=== PATIENT | female | born 1945 | race Caucasian/White ===

== ENCOUNTER 2017-04-21 19:39 | Inpatient (IN) ==
[2017-04-21] MEDS ORDERED: ASPIRIN PO STA (19:44)
[2017-04-21 20:15] LABS: MANUAL DIFF NEEDED? NO
[2017-04-21 20:25] LABS: BASO% 0.3 % (0.0-0.8); EOS# 0.43 X1000 (0.0-0.7); EOS% 3.6 % (0.0-10.0); HEMATOCRIT 39.8 % (37.0-47.0); HEMOGLOBIN 13.2 g/dL (12.0-16.0); IMM GRAN# 0.03 X1000 (0.0-0.04); IMM GRAN% 0.3 % (0.0-0.5); LYMPH# 1.93 X1000 (1.2-3.4); LYMPH% 16.2 % (20.5-51.1); MCHC 33.2 g/dL (33-37); MCV 96.6 FL (81-99); MONO# 1.19 X1000 (0.11-0.59); MPV 10.7 FL (7.4-10.4); NEUT% 69.6 % (42.2-75.2); PLT 205 X1000 (130-400); RBC 4.12 XMIL (4.2-5.4)
[2017-04-21 20:32] LABS: INR 0.94; PROTIME 9.8 Seconds (9.2-11.7); PTT 25.9 Seconds (22.0-36.0)
[2017-04-21 20:46] LABS: AGAP 13; ALBUMIN 4.3 g/dL (3.5-5.0); ALKALINE PHOSPHATASE 104 U/L (32-104); BUN 17 mg/dL (8-22); CALCIUM 9.2 mg/dL (8.8-10.2); CHLORIDE 99 mmol/L (98-107); CK PROFILE 38 U/L (24-173); COSMO 283; GOT 35 U/L (10-30); GPT 46 U/L (10-36); MAGNESIUM 2.1 mg/dL (1.5-2.7); POTASSIUM 4.3 mmol/L (3.5-5.1); SODIUM 140 mmol/L (136-145); TCO2 28 mmol/L (25-35); TOTAL BILIRUBIN 0.54 mg/dL (0.20-1.00); TOTAL PROTEIN 7.1 g/dL (6.3-8.3)
--- NOTE | 2017-04-21 21:01 | PROVIDER DOCUMENTATION ---
HPI-General Adult - General Chief Complaint: Chest Pain Stated Complaint: CHEST PAIN/LT ARM PAIN Time Seen by Provider: 04/21/17 20:24 Source: patient, family Allergies/Adverse Reactions: Patient Allergies Allergy/AdvReac Type Severity Reaction Status Date / Time meperidine HCl * Allergy Severe ANAPHYLAXIS Verified 04/21/17 21:46 [From Demerol] Home Medications: Home Medication List Medication Instructions Recorded Confirmed Last Taken Type Fluoxetine [Prozac] 40 mg PO DAILY 08/29/12 04/21/17 04/20/17 History Furosemide [Lasix] 40 mg PO QAM 08/29/12 04/21/17 04/20/17 History LISINOpril [Prinivil] 20 mg PO BID 08/29/12 04/21/17 04/21/17 08:00 History Levothyroxine [Synthroid] 75 microgm PO DAILY 08/29/12 04/21/17 04/21/17 History Amlodipine Besylate [Norvasc] 5 mg PO DAILY 09/29/16 04/21/17 04/21/17 History Clonidine [Catapres] 0.2 mg PO QHS 04/21/17 04/21/17 04/20/17 History Gabapentin [Neurontin] 300 mg PO QHS 04/21/17 04/21/17 04/20/17 History Hydrocodone/Acetaminophen [Phelan 1 each PO Q6HR PRN 04/21/17 04/21/17 04/21/17 20:30 History 7.5-325 Tablet] Valacyclovir HCl [Valtrex] 1,000 mg PO TID 04/21/17 04/21/17 04/21/17 History - History of Present Illness -Gen Adult Nature of Presenting Problems: 71 year old WF presents with multiple complaints. One, pt reports she was awakened this morning with left arm pain, left axilla, dull in nature, radiating to the left left neck and left chest. pt reports she took 2 Phelan this morning and that resolved all pain. pt reports she is pain free except when her LUE is palpated, then the pain can be reproduced. pt also reports intermittent swelling of her LUE. Second complaint is the development of two abscess to the left lower abdomen region. pt reports she was evaluated by her PMD for this, told it was shingles and placed on valcyclovir. Third complaint is the yeast infection under her left panus. Pt report she was also evaluated by her PMD for this and placed on micanozole. Pt reports chills for a week with subjective fever, max temp 99 at home. Additionally, pt reports she has been feeling weak, tired and fatigued. Review of Systems - Adult - REVIEW OF SYSTEMS - ADULT Constitutional: reports: no symptoms reported. denies: chills, fever, fatique Eyes: reports: no symptoms reported. denies: discharge, blurred vision, double vision Ears, Nose, Mouth & Throat: reports: no symptoms reported. denies: ear discharge, ear pain, nose pain, loose teeth, throat pain, throat swelling Cardiovascular: reports: see HPI, chest pain. denies: palpitations, syncope Respiratory: reports: no symptoms reported. denies: chronic cough, cough, shortness of breath, wheezing Gastrointestinal: reports: no symptoms reported. denies: abdominal pain, diarrhea, nausea, poor appetite, vomiting Genitourinary: reports: no symptoms reported. denies: dysuria, hematuria, urgency Musculoskeletal: reports: no symptoms reported. denies: bone pain, joint pain, joint swelling, neck pain Integumentary: reports: see HPI, itching, rash (panus), skin sores/ulcer (LLQ) Neurological: reports: no symptoms reported. denies: ataxia, dizziness/vertigo , numbness, paresthesia Psychiatric: reports: no symptoms reported Endocrine: reports: no symptoms reported Hematologic/Lymphatic: reports: no symptoms reported Allergic/Immunologic: reports: no symptoms reported All Other Systems: Reviewed and Negative Past History - Adult - PAST MEDICAL HISTORY-ADULT Review of Records: reports: Old Records Reviewed, Nursing Assessment Review, Medications Reviewed, Social history reviewed & non-contributory. Major Childhood Illnesses: reports: denies history Cardiovascular: reports: HTN, hyperlipidemia Respiratory: reports: asthma Gastrointestinal: reports: GERD Obstetrical/Gynecological: reports: denies history Genitourinary: reports: denies history Musculoskeletal: reports: denies history Neurological: reports: denies history Endocrine/Immune: reports: thyroid disorder Other Conditions: reports: denies history - PRIOR SURGERIES/PROCEDURES Surgical/Procedure History: reports: appendectomy, cholecystectomy (HEMMORHOID SURGERY), hysterectomy, other (HEMM) - IMMUNIZATION STATUS Childhood Immunizations: See Nurse Assessment Flu Vaccine: See Nurse Assessment - FAMILY HISTORY Family History: reviewed, not pertinent Physical Exam-General - PHYSICAL EXAM-ADULT Initial Vital Signs Reviewed: Yes - CONSTITUTIONAL General Appearance: appears well, alert, no apparent distress. negative: mild distress, moderate distress, severe distress - EYES Eyes: pink conjunctivae. negative: conjuctival exudate, photophobia, sclera injected, scleral icterus, subconjunctival hemorrhage - HEAD, EARS, NOSE, MOUTH & THROAT HENMT: normocephalic/atraumatic, moist mucous membranes, normal ENT inspection - NECK Neck: non-tender, full range of motion, supple, normal inspection. negative: C- spine tenderness, limited range of motion, tender lateral, tender midline - RESPIRATORY Respiratory: chest non-tender, lungs clear, normal breath sounds, no pleuratic chest pain, no respiratory distress, no accessory muscle use. negative: respiratory distress, decreased breath sounds, accessory muscle use, crackles, rales, rhonchi, stridor, wheezing - CARDIOVASCULAR Cardiovascular: normal peripheral pulses, regular rate, rhythm - GASTROINTESTINAL (ABDOMEN) Abdominal Exam: normal bowel sounds, non tender, soft - MUSCULOSKELETAL Back Exam: normal inspection, no CVA tenderness, no vertebral tenderness. negative: CVA tenderness, decreased range of motion, swelling, vertebral tenderness Extremity: normal range of motion, normal gait, normal inspection, no pedal edema, no calf tenderness, normal capillary refill, tenderness. negative: non- tender (LUE tender to palpation at the brachial region; left upper posterior arm tender without area of erythema, rash, swelling.), abnormal NV exam, calf tenderness, deformity, erythema, inflammation, pulse deficit, pedal edema, slow capillary refill, swelling Peripheral Pulses: radial (R): 3+, radial (L): 3+ - SKIN Integumentary: normal color, normal turgor, warm/dry, erythema (left lower abdomen with two abscess; 1. 2cm by 2cm abscess with surrounding erythema 2. 3cm by 3cm abscess with surrounding erythema; all region tender to palpation.), rash (panus when lifted with diffuse erthema-yeast rash, tender to palpation.), swelling, tenderness, warm - NEUROLOGIC Neurologic: grossly normal, no motor/sensory deficits. negative: focal weakness - PSYCHIATRIC Psych/Mental Status: normal mood/affect, normal thought content, normal thought process, oriented x 3 Progress - PLAN OF CARE/RESULTS Progress/Plan/Lab Results: Vital Signs - 8 hr 04/21/17 19:51 Temperature 98.5 F Pulse Rate 99 H Respiratory Rate 16 Blood Pressure 147/71 O2 Sat by Pulse Oximetry 97 Laboratory Results - last 24 hr 04/21/17 04/21/17 04/21/17 20:04 20:04 20:04 WBC 11.95 H RBC 4.12 L Hgb 13.2 Hct 39.8 MCV 96.6 MCH 32.0 H MCHC 33.2 RDW Std Deviation 11.7 Plt Count 205 MPV 10.7 H Immature Gran % (Auto) 0.3 Neut % (Auto) 69.6 Lymph % (Auto) 16.2 L Brooks % (Auto) 10.0 H Eos % (Auto) 3.6 Baso % (Auto) 0.3 Immature Gran # (Auto) 0.03 Neut # (Auto) 8.34 H Lymph # (Auto) 1.93 Brooks # (Auto) 1.19 H Eos # (Auto) 0.43 Baso # (Auto) 0.03 PT INR PTT (Actin FS) Sodium 140 Potassium 4.3 Chloride 99 Carbon Dioxide 28 Anion Gap 13 BUN 17 Creatinine 0.8 Estimated GFR/1.73 m2 > 60 BUN/Creatinine Ratio 21 Glucose 134 H Calculated Osmolality 283 Calcium 9.2 Magnesium 2.1 Total Bilirubin 0.54 AST 35 H ALT 46 H Alkaline Phosphatase 104 Creatine Kinase 38 Troponin T Ies-X-Uqpzqkpsaea Pept 63 Total Protein 7.1 Albumin 4.3 Globulin 2.8 Albumin/Globulin Ratio 1.5 04/21/17 04/21/17 20:04 20:04 WBC RBC Hgb Hct MCV MCH MCHC RDW Std Deviation Plt Count MPV Immature Gran % (Auto) Neut % (Auto) Lymph % (Auto) Brooks % (Auto) Eos % (Auto) Baso % (Auto) Immature Gran # (Auto) Neut # (Auto) Lymph # (Auto) Brooks # (Auto) Eos # (Auto) Baso # (Auto) PT 9.8 INR 0.94 PTT (Actin FS) 25.9 Sodium Potassium Chloride Carbon Dioxide Anion Gap BUN Creatinine Estimated GFR/1.73 m2 BUN/Creatinine Ratio Glucose Calculated Osmolality Calcium Magnesium Total Bilirubin AST ALT Alkaline Phosphatase Creatine Kinase Troponin T < 0.010 Qyv-L-Bpffsqzlxeq Pept Total Protein Albumin Globulin Albumin/Globulin Ratio Orders Category Date Time Status Cardiac Monitoring DIRECTED Care 04/21/17 19:44 Active Oxygen Therapy- ED Nursing DIRECTED Care 04/21/17 19:44 Active Saline Loc NOW Care 04/21/17 19:44 Active CHEST-2 VIEWS [RAD] Stat Exams 04/21/17 19:44 Taken BLOOD CULTURE [BLDCUL] Stat Lab 04/21/17 20:55 Uncollected CBC WITH ELECTRONIC DIFF [HEME] Stat Lab 04/21/17 20:04 Completed CK PROFILE [SP CHEM] Stat Lab 04/21/17 20:04 Completed COMPREHENSIVE METABOLIC PANEL [CHEM] Stat Lab 04/21/17 20:04 Completed D-DIMER [CHEM] Stat Lab 04/21/17 20:04 Received LACTATE, PLASMA [CHEM] Stat Lab 04/21/17 20:55 Uncollected MAGNESIUM [CHEM] Stat Lab 04/21/17 20:04 Completed PRO B-NATRIURETIC PEPTIDE Stat Lab 04/21/17 20:04 Completed PROTIME WITH INR [COAG] Stat Lab 04/21/17 20:04 Completed PTT [COAG] Stat Lab 04/21/17 20:04 Completed TROPONIN T Stat Lab 04/21/17 20:04 Completed UA NIMS W/REFLEX CULT [URINALYSIS] Stat Lab 04/21/17 20:55 Uncollected Aspirin Med 04/21/17 19:44 Discontinued 325 mg PO STAT STA EKG [EKG] Stat Ther 04/21/17 19:44 Ordered Orders Category Date Time Status Cardiac Monitoring DIRECTED Care 04/21/17 19:44 Active Oxygen Therapy- ED Nursing DIRECTED Care 04/21/17 19:44 Active Saline Loc NOW Care 04/21/17 19:44 Active CHEST-2 VIEWS [RAD] Stat Exams 04/21/17 19:44 Completed CTA [ANGIOGRAM/PULMONARY ARTERIES] [CT] Stat Exams 04/21/17 23:07 Taken BLOOD CULTURE [BLDCUL] Stat Lab 04/21/17 21:20 Received CBC WITH ELECTRONIC DIFF [HEME] Stat Lab 04/21/17 20:04 Completed CK PROFILE [SP CHEM] Stat Lab 04/21/17 20:04 Completed CK PROFILE [SP CHEM] Stat Lab 04/21/17 23:07 Ordered COMPREHENSIVE METABOLIC PANEL [CHEM] Stat Lab 04/21/17 20:04 Completed D-DIMER [CHEM] Stat Lab 04/21/17 20:04 Completed LACTATE, PLASMA [CHEM] Stat Lab 04/21/17 21:20 Completed MAGNESIUM [CHEM] Stat Lab 04/21/17 20:04 Completed PRO B-NATRIURETIC PEPTIDE Stat Lab 04/21/17 20:04 Completed PROTIME WITH INR [COAG] Stat Lab 04/21/17 20:04 Completed PTT [COAG] Stat Lab 04/21/17 20:04 Completed TROPONIN T Stat Lab 04/21/17 20:04 Completed TROPONIN T Stat Lab 04/21/17 23:07 Ordered UA NIMS W/REFLEX CULT [URINALYSIS] Stat Lab 04/21/17 22:35 Completed Aspirin Med 04/21/17 19:44 Discontinued 325 mg PO STAT STA Vancomycin 1 gm/Ns Med 04/21/17 23:09 Discontinued 1 gm in 250 ml IV NOW EKG [EKG] Stat Ther 04/21/17 19:44 Ordered US [Venous U/S Left Arm] Stat Ther 04/21/17 21:47 Completed Vital Signs - 24 hr 04/21/17 19:51 04/21/17 21:26 Temperature 98.5 F Pulse Rate 99 H 83 Respiratory Rate 16 15 Blood Pressure 147/71 O2 Sat by Pulse Oximetry 97 Laboratory Tests 04/21/17 04/21/17 04/21/17 20:04 20:04 20:04 WBC 11.95 H RBC 4.12 L Hgb 13.2 Hct 39.8 MCV 96.6 MCH 32.0 H MCHC 33.2 RDW Std Deviation 11.7 Plt Count 205 MPV 10.7 H Immature Gran % (Auto) 0.3 Neut % (Auto) 69.6 Lymph % (Auto) 16.2 L Brooks % (Auto) 10.0 H Eos % (Auto) 3.6 Baso % (Auto) 0.3 Immature Gran # (Auto) 0.03 Neut # (Auto) 8.34 H Lymph # (Auto) 1.93 Brooks # (Auto) 1.19 H Eos # (Auto) 0.43 Baso # (Auto) 0.03 PT INR PTT (Actin FS) D-Dimer 0.63 H Sodium 140 Potassium 4.3 Chloride 99 Carbon Dioxide 28 Anion Gap 13 BUN 17 Creatinine 0.8 Estimated GFR/1.73 m2 > 60 BUN/Creatinine Ratio 21 Glucose 134 H Calculated Osmolality 283 Calcium 9.2 Magnesium 2.1 Total Bilirubin 0.54 AST 35 H ALT 46 H Alkaline Phosphatase 104 Creatine Kinase 38 Troponin T Jpj-D-Gpqaybblmny Pept Total Protein 7.1 Albumin 4.3 Globulin 2.8 Albumin/Globulin Ratio 1.5 Plasma Lactate Urine Source Urine Color Urine Turbidity Urine pH Ur Specific [place] Urine Protein Ur Glucose (Stick) Ur Ketones (Stick) Urine Blood Urine Nitrite Urine Bilirubin Urobilinogen Dipstick Urine Leukocytes Urine WBC (Auto) Urine RBC (Auto) U Epithel Cells (Auto) Urine Bacteria (Auto) 04/21/17 04/21/17 04/21/17 20:04 20:04 20:04 WBC RBC Hgb Hct MCV MCH MCHC RDW Std Deviation Plt Count MPV Immature Gran % (Auto) Neut % (Auto) Lymph % (Auto) Brooks % (Auto) Eos % (Auto) Baso % (Auto) Immature Gran # (Auto) Neut # (Auto) Lymph # (Auto) Brooks # (Auto) Eos # (Auto) Baso # (Auto) PT 9.8 INR 0.94 PTT (Actin FS) 25.9 D-Dimer Sodium Potassium Chloride Carbon Dioxide Anion Gap BUN Creatinine Estimated GFR/1.73 m2 BUN/Creatinine Ratio Glucose Calculated Osmolality Calcium Magnesium Total Bilirubin AST ALT Alkaline Phosphatase Creatine Kinase Troponin T < 0.010 Wsb-S-Sxlzesxjliu Pept 63 Total Protein Albumin Globulin Albumin/Globulin Ratio Plasma Lactate Urine Source Urine Color Urine Turbidity Urine pH Ur Specific [place] Urine Protein Ur Glucose (Stick) Ur Ketones (Stick) Urine Blood Urine Nitrite Urine Bilirubin Urobilinogen Dipstick Urine Leukocytes Urine WBC (Auto) Urine RBC (Auto) U Epithel Cells (Auto) Urine Bacteria (Auto) 04/21/17 04/21/17 21:20 22:35 WBC RBC Hgb Hct MCV MCH MCHC RDW Std Deviation Plt Count MPV Immature Gran % (Auto) Neut % (Auto) Lymph % (Auto) Brooks % (Auto) Eos % (Auto) Baso % (Auto) Immature Gran # (Auto) Neut # (Auto) Lymph # (Auto) Brooks # (Auto) Eos # (Auto) Baso # (Auto) PT INR PTT (Actin FS) D-Dimer Sodium Potassium Chloride Carbon Dioxide Anion Gap BUN Creatinine Estimated GFR/1.73 m2 BUN/Creatinine Ratio Glucose Calculated Osmolality Calcium Magnesium Total Bilirubin AST ALT Alkaline Phosphatase Creatine Kinase Troponin T Vdc-Q-Purwlbdzryg Pept Total Protein Albumin Globulin Albumin/Globulin Ratio Plasma Lactate 1.9 Urine Source CLEAN CATCH Urine Color YELLOW Urine Turbidity HAZY Urine pH 5.5 Ur Specific [place] 1.026 Urine Protein TRACE A Ur Glucose (Stick) NEGATIVE Ur Ketones (Stick) NEGATIVE Urine Blood NEGATIVE Urine Nitrite NEGATIVE Urine Bilirubin NEGATIVE Urobilinogen Dipstick NORMAL Urine Leukocytes LARGE A Urine WBC (Auto) TNTC A Urine RBC (Auto) <10 U Epithel Cells (Auto) <10 Urine Bacteria (Auto) 2+ Reviewed labs, radiology, H&P with Dr. Deshpande, agrees with admission, care of treatment, plan. Result Diagrams: 04/21/17 20:04 04/21/17 20:04 - XRAY 1 XRAY Study: Chest Impression: Normal (per Dr. Amato) - CT/MRI 1 CT Study: Thorax Impression: Normal (no pulmonary embolus. per Dr. Sam) - ULTRASOUND (By Radiology) 1 US Study: Upper Ext Impression: Normal (negative for DVT) - CONSULTS/PCP/HOSPITALIST Notification #1 *Consult/PCP/Hospitalist*: Dr. Gonzalez Time Discussed: 00:19 Consult Disposition: Will see in ED, Admit Departure - Departure Date of Disposition Decision: 04/22/17 Time of Disposition Decision: 00:19 DIAGNOSIS: Abscess Cellulitis Qualifiers: Site of cellulitis: trunk Site of cellulitis of trunk: abdominal wall Qualified Code(s): L03.311 - Cellulitis of abdominal wall UTI (urinary tract infection) Qualifiers: Urinary tract infection type: acute cystitis Hematuria presence: without hematuria Qualified Code(s): N30.00 - Acute cystitis without hematuria Chest pain Qualifiers: Chest pain type: other chest pain Qualified Code(s): R07.89 - Other chest pain ; R07.8 - Other chest pain Disposition: ADMITTED INPATIENT 09 Certified Medical Emergency: Emergent Condition: Stable Referrals and Follow-Ups: Myesha Herrera MD [Primary Care Provider] - - Critical Care Note This patient required my direct & personal management of CC.: No Attestation - Physician/ LEAH Attestation Patient care was provided by Advanced Practice Provider:: Yes Advanced Practice Provider:: Renetta Almazan Advanced Practice Provider documentation review:: The Mid-level provider documentation, treatment plan and medical decision making was reviewed by the physician who agrees with all treatment and medical decision making by the MLP.
--- NOTE | 2017-04-21 21:45 | Diag Imaging Result Doc PS360 ---
EXAM: CHEST-2 VIEWS INDICATION: CP TECHNIQUE: 2 views COMPARISON: 06/28/2016 FINDINGS: The lungs are grossly clear. There is no discrete pleural fluid collection or pneumothorax. The cardiomediastinal silhouette and central vasculature are grossly unremarkable. IMPRESSION: No evidence of acute pathology by plain radiograph. Electronically signed by Benitez Amato 04/21/2017 9:43 PM
[2017-04-21 23:05] LABS: URINE MICRO REVIEW NEEDED? NO; URINE SOURCE CLEAN CATCH
[2017-04-21 23:09] LABS: BILIRUBIN URINE NEGATIVE (NEGATIVE); BLOOD URINE NEGATIVE (NEGATIVE); COLOR YELLOW; GLUCOSE URINE NEGATIVE (NEGATIVE); LEUKOCYTES URINE LARGE (NEGATIVE); NITRITE URINE NEGATIVE (NEGATIVE); PH URINE 5.5; PROTEIN URINE TRACE mg/dL (NEGATIVE); SP GRAVITY URINE 1.026; TURBIDITY URINE HAZY (CLEAR); UROBILINOGEN URINE NORMAL (NORMAL)
[2017-04-21] MEDS ORDERED: VANCOMYCIN 1 GM/NS 1 GM/250 ML IVPB IV ONE (23:09)
[2017-04-21 23:11] LABS: UR EPITHELIAL CELLS <10 /HPF (<10); URINE BACTERIA 2+ /HPF; URINE CULTURE NEEDED? YES; URINE RBC <10 /HPF (<10); URINE WBC TNTC /HPF (<10)
[2017-04-22] MEDS ORDERED: NS 1,000 ML IV ONE (00:12)
[2017-04-22] MEDS ORDERED: ROCEPHIN 1 GM/NS 1 GM/50 ML IVPB IV ONE (00:15)
[2017-04-22] MEDS ORDERED: VANCOMYCIN IV PER PHARMACY MISC SCH (02:32)
[2017-04-22] MEDS ORDERED: TYLENOL PO PRN (02:32)
[2017-04-22] MEDS ORDERED: ZOFRAN IV PRN (02:32)
[2017-04-22] MEDS ORDERED: VANCOMYCIN 600 MG in NS 150 ML IV ONE (04:00)
--- NOTE | 2017-04-22 04:47 | HISTORY AND PHYSICAL ---
CHIEF COMPLAINT: A sore on abdomen and chest pain. HISTORY OF PRESENTING ILLNESS: This is a 71-year-old female with a history of hypertension had presented to emergency department with 2 days' history of having a sore on her abdomen and having some chest pain. She states that she saw her primary care physician who thought that the sore was possible zoster; however, the sore became more infected and it became more red and tender in her abdomen. Subsequently, the patient had come to the emergency department. She was evaluated in the ER and it seemed that there was possibly a cellulitis with possible abscess formation. During this time, she was also complaining of some chest discomfort with pain radiating to her left upper extremity and due to her presenting symptoms, she will need hospitalization for further management. At the time of my examination, she had denied any headache, fever, chills, nausea, vomiting, diarrhea, hemoptysis, melena or weight changes but complained of chest pain and sore in the abdomen. PAST MEDICAL HISTORY: Includes hypertension. PAST SURGICAL HISTORY: Appendectomy, cholecystectomy, bladder surgery, hysterectomy, breast biopsy, back surgery. ALLERGIES: Demerol. CURRENT MEDICATIONS: As listed in the MAR. SOCIAL HISTORY: No history of smoking, alcohol or illicit drug use. FAMILY HISTORY: Positive for coronary disease in father. REVIEW OF SYSTEMS: Twelve point review of systems as listed as in HPI. Other systems negative. PHYSICAL EXAMINATION: GENERAL: Cooperative, friendly female. She is resting comfortably now. VITAL SIGNS: Temperature 98.5 degrees, pulse 99, respirations 16, blood pressure 147/71. She is saturating 97%. HEENT: Atraumatic, normocephalic. Extraocular movements intact. PERRLA. NECK: Supple. CHEST: Clear to auscultation. CARDIOVASCULAR: Regular rhythm. ABDOMEN: Soft. Positive bowel sounds. SKIN: There is tenderness and erythema on the abdominal region. : No bladder distention. NEURO: She is awake, alert, oriented x2. LABORATORIES AND STUDIES: WBC 11.95, hemoglobin 13.2, hematocrit 39.8, platelets is 205,000. Sodium 140, potassium 4.3, chloride 99, CO2 28, BUN is 17, creatinine 0.8, glucose is 134. ASSESSMENT: A 71-year-old female with a history of hypertension had presented to the emergency department with several days' history of noticing a sore that seemed to be infected. She was also having chest pain during this time, and due to her presenting symptoms, she will need hospitalization for further management. 1. Abdominal cellulitis, possibly early abscess. 2. Chest pain. 3. Hypertension. 4. Possible urinary tract infection. PLAN: 1. We will admit patient to medical floor with telemetry. 2. We will start patient on IV antibiotics. 3. Continue with cardiac workup. Check EKG, serial cardiac enzymes. Patient continue on aspirin. We will use sublingual nitroglycerin, morphine p.r.n. chest pain. 4. We will monitor blood pressure closely. 5. We will check a urine cultures and continue with IV antibiotics. 6. Put patient on DVT prophylaxis with SCD. 7. Continue follow and reassess. cc: Bobo Gonazlez MD
[2017-04-22] MEDS: PRILOSEC PO SCH (06:33)
[2017-04-22] MEDS: SYNTHROID PO SCH (06:33)
[2017-04-22] MEDS: LASIX PO SCH (09:39)
[2017-04-22] MEDS: PROZAC PO SCH (09:39)
[2017-04-22] MEDS: PRINIVIL PO SCH ×2 (09:39→21:13)
[2017-04-22] MEDS: NORVASC PO SCH (09:40)
[2017-04-22] MEDS: ASPIRIN PO SCH (09:40)
[2017-04-22 10:04] LABS: MANUAL DIFF NEEDED? NO
[2017-04-22 10:05] LABS: BASO% 0.1 % (0.0-0.8); EOS% 2.2 % (0.0-10.0); HEMATOCRIT 38.5 % (37.0-47.0); HEMOGLOBIN 12.5 g/dL (12.0-16.0); IMM GRAN# 0.07 X1000 (0.0-0.04); IMM GRAN% 0.5 % (0.0-0.5); LYMPH% 12.5 % (20.5-51.1); MCH 31.4 PG (27-31); MCHC 32.5 g/dL (33-37); MCV 96.7 FL (81-99); MONO# 1.38 X1000 (0.11-0.59); MONO% 10.2 % (1.7-9.3); MPV 10.1 FL (7.4-10.4); NEUT% 74.5 % (42.2-75.2); PLT 205 X1000 (130-400); RBC 3.98 XMIL (4.2-5.4)
[2017-04-22 10:21] LABS: AGAP 12; ALKALINE PHOSPHATASE 100 U/L (32-104); BUN 13 mg/dL (8-22); CALCIUM 9.1 mg/dL (8.8-10.2); CHLORIDE 102 mmol/L (98-107); COSMO 282; GOT 25 U/L (10-30); GPT 39 U/L (10-36); POTASSIUM 4.7 mmol/L (3.5-5.1); SODIUM 141 mmol/L (136-145); TCO2 27 mmol/L (25-35); TOTAL BILIRUBIN 0.48 mg/dL (0.20-1.00); TOTAL PROTEIN 6.9 g/dL (6.3-8.3)
--- NOTE | 2017-04-22 11:13 | Diag Imaging Result Doc PS360 ---
EXAM: ANGIOGRAM/PULMONARY ARTERIES INDICATION: left chest pain; elevated d-dimer COMPARISON: None. FINDINGS: There is no evidence of pulmonary embolism. There is mild aortic calcification. There is no evidence of aortic aneurysm or dissection. There is no cardiomegaly. There are a few small calcified mediastinal and right hilar lymph nodes indicating prior granulomatous disease. There are a few calcified granulomata bilaterally, with more on the right. The lungs are clear otherwise. There is no pleural fluid collection. There is no pneumothorax. IMPRESSION: 1.No evidence of pulmonary embolism or other definite acute pathology. 2.Other incidental/nonacute findings detailed above. Electronically signed by Benitez Amato 04/22/2017 11:10 AM
--- NOTE | 2017-04-22 19:10 | ECHO REPORT ---
ORDER DATE: 04/22/2017 MEASUREMENTS: Left ventricular end-diastolic diameter 3.7/ End systolic diameter 2.3. Posterior wall thickness 0.7. Septal thickness 0.7. Left atrium 3.6. Aortic root 3.1. SUMMARY: 1. Technically difficult study due to limited acoustic window quality. 2. Trileaflet aortic valve demonstrates mild sclerosis, and opens adequately on 2-dimensional images. Peak gradient across the aortic valve is 18 mmHg with a mean gradient of 9 mmHg. Calculated aortic valve area is greater than 2.0 cm2 and gradient probably elevated in setting of dynamic left ventricular systolic function. Left ventricular outflow tract VTI is 30.6. Moderate mitral annular calcification is demonstrated with mild mitral regurgitation. Tricuspid and pulmonic valves are without structural abnormality with mild tricuspid regurgitation. The estimated systolic PA pressure by Doppler is approximately 30-35 mmHg. Aortic root is normal in size. 3. Normal left ventricular dimensions demonstrated. Left ventricle appears dynamic with estimated left ejection fraction at least 70%. Resting gradient in left ventricular outflow tract is 9 mmHg and increases to 65 mmHg with Valsalva maneuver suggesting dynamic left ventricular outflow tract obstruction physiology. Doppler suggests grade 1 left ventricular diastolic dysfunction. No regional wall motion abnormalities are evident. Left atrium, right atrium, right ventricle are normal in size with normal right ventricular systolic function. 4. No pericardial effusion. 5. Appearance of inferior vena cava suggests normal central venous pressure. CONCLUSIONS: 1. Technically difficult study. 2. Aortic valve sclerosis without significant stenosis. 3. Moderate mitral annular calcification with mild mitral regurgitation. 4. Mild tricuspid regurgitation with estimated systolic PA pressure 30-35 mmHg. 5. Dynamic left ventricle with estimated left ventricular ejection fraction at least 70%. 6. Resting gradient in left ventricular outflow tract of 9 mmHg increases to 65 mmHg with Valsalva maneuver suggesting dynamic left ventricular outflow tract obstruction physiology. 7. Grade 1 left ventricular diastolic dysfunction. cc: MD Boob Tovar MD
[2017-04-22] MEDS: NEURONTIN PO SCH (21:13)
[2017-04-22] MEDS: CATAPRES PO SCH (21:13)
[2017-04-23] MEDS ORDERED: ROCEPHIN 1 GM/NS 1 GM/50 ML IVPB IV SCH (02:00)
[2017-04-23] MEDS: VANCOMYCIN 1,100 MG in NS 250 ML IV SCH (03:10)
[2017-04-23] MEDS: PRILOSEC PO SCH (06:29)
[2017-04-23] MEDS: SYNTHROID PO SCH (06:29)
[2017-04-23 07:39] LABS: HDL 48 mg/dL (45-65); LDL 96 mg/dL; TRIGLYCERIDES 94 mg/dL (35-135); VLDL 19 mg/dL
[2017-04-23 07:40] LABS: AGAP 15; BUN 16 mg/dL (8-22); CHLORIDE 105 mmol/L (98-107); COSMO 292; POTASSIUM 3.9 mmol/L (3.5-5.1); SODIUM 146 mmol/L (136-145); TCO2 26 mmol/L (25-35)
[2017-04-23] MEDS: NORVASC PO SCH (10:07)
[2017-04-23] MEDS: PROZAC PO SCH (10:07)
[2017-04-23] MEDS: ASPIRIN PO SCH (10:07)
[2017-04-23] MEDS: PRINIVIL PO SCH ×2 (10:07→20:36)
[2017-04-23] MEDS: LASIX PO SCH (10:07)
[2017-04-23] MEDS: ZOSYN 3.375 GM/NS 3.375 GM/50 ML IVPB IV SCH ×2 (13:17→19:39)
--- NOTE | 2017-04-23 13:43 | Diag Imaging Result Doc PS360 ---
EXAM: US NON VASC EXTREMITY LIMITED INDICATION: left lower quadrant abdominal skin lesion COMPARISON: None. FINDINGS: Underlying the indurated palpable skin lesion at the left lower quadrant, there is a small complex fluid collection. A small abscess is possible. No other cystic or solid lesions are identified sonographically. IMPRESSION: Small complex fluid collection underlying the reported skin lesion at the left lower quadrant. Electronically signed by Benitez Amato 04/23/2017 1:41 PM
--- NOTE | 2017-04-23 14:51 | PROGRESS NOTE ---
DATE: 04/23/2017 SUBJECTIVE: This patient states that she is feeling better but she is still complaining about pain at the level of the left lower abdominal area. She has an area of redness and palpable, intubated skin lesion. I have ordered a left lower quadrant abdominal wall ultrasound. I also stopped the ceftriaxone and I put this patient on vancomycin. OBJECTIVE: Vital Signs: Temperature 97.9 degrees, pulse 69, respiratory rate 20, blood pressure 139/61, oxygen saturation 97% on room air. HEENT: Head normocephalic. No trauma. PERRLA. Neck: Supple. No JVD. No masses. Central trachea. Chest: Clear to auscultation. No wheezing. No rales. Cardiovascular: RRR. No murmurs. Abdomen: Soft. Positive bowel sounds. There is tenderness and erythema at the level of the left lower quadrant. There is also in that area some induration but I do not feel any fluctuation. Extremities: No edema. No clubbing. No cyanosis. Neurological: The patient is alert and oriented x3. No focal deficits. LABORATORY: Sodium 146, potassium 3.9, chloride 105, bicarbonate 26, BUN 16, creatinine 0.9, glucose 104, calcium 9. ASSESSMENT AND PLAN: 1. Abdominal wall cellulitis with possible abscess. An abdominal wall ultrasound has been has been done, pending results. I switched the ceftriaxone for Zosyn. This patient is already receiving vancomycin. Cultures so far have been negative. 2. Chest pain. Cardiac enzymes are negative. We can reproduce the pain with palpation. I am not concerned about cardiac type pain. 3. Hypertension, stable. Continue to monitor. 4. Possible urinary tract infection. This patient is on antibiotics. We will continue to monitor. Urine culture has been negative so far. cc: Sean Vanegas MD
[2017-04-23] MEDS: CATAPRES PO SCH (20:36)
[2017-04-23] MEDS: NEURONTIN PO SCH (20:36)
[2017-04-24] MEDS: ZOSYN 3.375 GM/NS 3.375 GM/50 ML IVPB IV SCH ×4 (01:32→21:56)
[2017-04-24] MEDS: VANCOMYCIN 1,100 MG in NS 250 ML IV SCH (03:32)
--- NOTE | 2017-04-24 05:45 | EKG Report ---
Test Performed on : 04/21/2017 7:47:24 PM Test Reason : Chest Pain Blood Pressure : / mmHG Vent. Rate : 099 BPM Atrial Rate : 099 BPM P-R Int : 128 ms QRS Dur : 066 ms QT Int : 328 ms P-R-T Axes : 042 018 056 degrees QTc Int : 420 ms Normal sinus rhythm. Septal infarct (cited on or before 29-SEP-2016) Abnormal ECG When compared with ECG of 29-SEP-2016 09:54, Vent. rate has increased BY 38 BPM Unconfirmed Result
[2017-04-24] MEDS: SYNTHROID PO SCH (06:06)
[2017-04-24] MEDS: PRILOSEC PO SCH (06:06)
[2017-04-24 06:35] LABS: MANUAL DIFF NEEDED? NO
[2017-04-24 07:10] LABS: AGAP 13; BUN 18 mg/dL (8-22); CALCIUM 8.8 mg/dL (8.8-10.2); CHLORIDE 104 mmol/L (98-107); COSMO 289; POTASSIUM 3.9 mmol/L (3.5-5.1); SODIUM 144 mmol/L (136-145); TCO2 27 mmol/L (25-35)
[2017-04-24 08:43] LABS: BASO% 0.3 % (0.0-0.8); EOS# 0.63 X1000 (0.0-0.7); HEMATOCRIT 39.1 % (37.0-47.0); HEMOGLOBIN 12.8 g/dL (12.0-16.0); IMM GRAN# 0.02 X1000 (0.0-0.04); IMM GRAN% 0.3 % (0.0-0.5); LYMPH# 1.52 X1000 (1.2-3.4); LYMPH% 21.8 % (20.5-51.1); MCH 31.8 PG (27-31); MCHC 32.7 g/dL (33-37); MONO# 1.05 X1000 (0.11-0.59); MONO% 15.1 % (1.7-9.3); MPV 10.8 FL (7.4-10.4); NEUT% 53.5 % (42.2-75.2); PLT 251 X1000 (130-400); RBC 4.03 XMIL (4.2-5.4)
[2017-04-24] MEDS: PRINIVIL PO SCH ×2 (09:38→21:56)
[2017-04-24] MEDS: PROZAC PO SCH (09:38)
[2017-04-24] MEDS: NORVASC PO SCH (09:38)
[2017-04-24] MEDS: ASPIRIN PO SCH (09:38)
[2017-04-24] MEDS: LASIX PO SCH (09:38)
--- NOTE | 2017-04-24 14:29 | PROGRESS NOTE ---
DATE: 04/24/2017 SUBJECTIVE: This patient states that she is feeling a little bit better, but she is still complaining about pain at the level of the left lower abdominal area. She also has redness with some scaly lesions at the level of the inguinal area. I ordered an abdominal wall ultrasound that showed a small complex fluid collection underlying the reported skin lesion at the level of the left lower quadrant. OBJECTIVE: Vital Signs: Temperature 97.6 degrees, pulse 67, respiratory rate 18, blood pressure 124/62, oxygen saturation 100% on room air. HEENT: Head is normocephalic. No trauma. PERRLA. Neck: Supple. No JVD. No masses. Central trachea. Chest: Clear to auscultation. No wheezing. No rales. Cardiovascular: RRR. No murmurs. Abdomen: Soft. Positive bowel sounds. There is tenderness and erythema at the level of the left lower quadrant. Also, there is some induration, but I do not feel any fluctuation. There is some redness with scaly lesions at the level of the inguinal area as well. Extremities: No edema. No clubbing. No cyanosis. Neurological: The patient is alert and oriented x3. No focal deficits. LABORATORY DATA: WBC 6.9, hemoglobin 12.8, hematocrit 39.1, platelet 251,000. Sodium 144, potassium 3.9, chloride 104, bicarbonate 27, BUN 18, creatinine 0.9, glucose 105, calcium 8.8. ASSESSMENT AND PLAN: 1. Abdominal wall cellulitis with possible abscess. An abdominal wall ultrasound showed a small complex process underlying the skin. I will continue with the antibiotics. This patient is on vancomycin and Zosyn. So far, blood cultures and urine culture have been negative. I have consulted the Surgery Department to rule out any abscess. 2. Chest pain. Cardiac enzymes are negative. We can reproduce the pain with palpation. I am not concerned about any kind of cardiac problem at this moment, but I will continue with telemetry. 3. Possible tenia cruris. I have started this patient on clotrimazole topically. We will monitor. 4. Hypertension, stable. Continue to monitor. 5. Possible urinary tract infection. This patient is on antibiotics. Continue to monitor. Cultures have been negative so far. cc: Sean Vanegas MD
[2017-04-24] MEDS: LOTRIMIN 1% CREAM TOP SCH ×2 (16:45→22:13)
[2017-04-24] MEDS: CATAPRES PO SCH (21:56)
[2017-04-24] MEDS: NEURONTIN PO SCH (21:56)
[2017-04-25] MEDS: ZOSYN 3.375 GM/NS 3.375 GM/50 ML IVPB IV SCH ×2 (02:52→10:08)
[2017-04-25 03:51] LABS: MANUAL DIFF NEEDED? NO
[2017-04-25 03:52] LABS: BASO% 0.5 % (0.0-0.8); EOS# 0.55 X1000 (0.0-0.7); EOS% 6.4 % (0.0-10.0); HEMATOCRIT 37.3 % (37.0-47.0); HEMOGLOBIN 12.4 g/dL (12.0-16.0); LYMPH# 1.97 X1000 (1.2-3.4); LYMPH% 22.9 % (20.5-51.1); MCHC 33.2 g/dL (33-37); MCV 96.1 FL (81-99); MONO# 0.82 X1000 (0.11-0.59); MONO% 9.5 % (1.7-9.3); MPV 10.2 FL (7.4-10.4); NEUT% 60.7 % (42.2-75.2); PLT 252 X1000 (130-400); RBC 3.88 XMIL (4.2-5.4)
[2017-04-25 04:14] LABS: ALBUMIN 3.8 g/dL (3.5-5.0); CALCIUM 8.8 mg/dL (8.8-10.2); TOTAL BILIRUBIN 0.41 mg/dL (0.20-1.00); TOTAL PROTEIN 6.3 g/dL (6.3-8.3)
[2017-04-25] MEDS: VANCOMYCIN 1,100 MG in NS 250 ML IV SCH (04:57)
[2017-04-25] MEDS: SYNTHROID PO SCH ×2 (05:39→06:33)
[2017-04-25] MEDS: PRILOSEC PO SCH ×2 (05:39→06:33)
--- NOTE | 2017-04-25 06:37 | CONSULTATION ---
DATE OF CONSULTATION: 04/24/2017 REASON FOR CONSULTATION: Consult is concerning possible left lower quadrant abscess. REQUESTING PHYSICIAN: Dr. Abdi. HISTORY OF PRESENT ILLNESS: This is a 71-year-old, female with a history of hypertension, presenting to the emergency department with a 2 day history of a sore on her abdomen. She had been worked up by her primary care physician, thought it was potentially shingles. She eventually came to the emergency department and started on IV antibiotics with a diagnosis of cellulitis. She did have an ultrasound done of her left lower quadrant recently that showed a small fluid collection. I was asked to weigh in on an opinion. Patient is still complaining of some abdominal pain in the left lower quadrant but this has not drastically changed from her admission. PAST MEDICAL HISTORY: Includes hypertension. PAST SURGICAL HISTORY: Includes appendectomy, cholecystectomy, bladder surgery, hysterectomy, breast biopsy, back surgery. ALLERGIES: Demerol. CURRENT MEDICATIONS: Of note, patient is on vancomycin and Zosyn. SOCIAL HISTORY: Denies alcohol, tobacco, or illicit drugs. FAMILY HISTORY: Positive for coronary artery disease. REVIEW OF SYSTEMS: A full 10 point review of systems was obtained and negative except those specified in the HPI. PHYSICAL EXAMINATION: Vital Signs: Patient is currently afebrile. Her vital signs are stable. General Examination: No acute distress. HEENT: Normocephalic, atraumatic. Pupils equal, round, and react to light. Mucous membranes moist. Oropharynx benign. Neck: Supple. Trachea midline. Cardiovascular: Regular rate and rhythm. Lungs: Grossly clear. Abdomen: Soft. There is an area of erythema noted in the left lower quadrant. There is a small area of induration. I did not feel any fluctuance at this time. This area is warm and tender to palpation. I marked it with a Sharpie. Skin: Please see above. Neurologic: Grossly intact. Vascular: All extremities perfused. Neurologic: Grossly intact. LABORATORY: White blood cell count is 6 which is down from 13, hematocrit 39, platelet count 251,000. Remainder of labs reviewed. Ultrasound reviewed. ASSESSMENT AND PLAN: A 71-year-old, female with left lower quadrant abdominal cellulitis. 1. Abdominal wall cellulitis. At this time, patient does have a small fluid collection. At this time, it is not large enough to likely merit drainage. On exam, it is mostly indurated. We will place warm compresses to the area to see if this area becomes more fluctuant to make it more amenable to drainage. Discussed this with the patient. It may ultimately require an incision and drainage. At this time, clinically, I did not see a significant enough abscess to really merit drainage at this time. 2. Multiple medical comorbidities. At this time, being managed by the hospitalist service. I appreciate the consult. cc: Vikas Nance MD
--- NOTE | 2017-04-25 09:48 | PROGRESS NOTE ---
DATE: 04/25/2017 SUBJECTIVE: Patient doing okay. No major changes. OBJECTIVE: Vital Signs: Patient is currently afebrile. Her vital signs are stable. General: No acute distress. Resting comfortably in bed, eating. HEENT: Normocephalic, atraumatic. Pupils equal, round, and reactive to light. Mucous membranes moist. Oropharynx benign. Neck supple. Trachea midline. Cardiovascular: Regular rate and rhythm. Lungs: Grossly clear. Abdomen: Erythema to the left lower quadrant, slightly improved. There is an area of some potential fluctuant which I aspirated with a needle and did not get much in the way of drainage but did get a little bit of purulence that was expressed. I used an 18-gauge needle. Patient tolerated it at the bedside. LABORATORY: White blood cell count 8. ASSESSMENT AND PLAN: A 71-year-old female with left lower quadrant abdominal wall cellulitis. 1. Left lower quadrant abdominal wall cellulitis. At this time, patient is on antibiotics. A little bit of purulence was drained at the bedside which the patient tolerated. At this time, will continue antibiotics, warm compresses, and monitor closely. 2. Multiple medical comorbidities currently being managed by the hospitalist service. cc: Vikas Nance MD
[2017-04-25] MEDS: ASPIRIN PO SCH (10:07)
[2017-04-25] MEDS: PROZAC PO SCH (10:07)
[2017-04-25] MEDS: NORVASC PO SCH (10:07)
[2017-04-25] MEDS: PRINIVIL PO SCH ×2 (10:08→20:35)
[2017-04-25] MEDS: LASIX PO SCH (10:08)
[2017-04-25] MEDS: LOTRIMIN 1% CREAM TOP SCH ×2 (10:15→20:36)
[2017-04-25] MEDS ORDERED: VANCOMYCIN 1,400 MG in NS 250 ML IV SCH (10:44)
--- NOTE | 2017-04-25 12:13 | Extremity Venous Study ---
PROCEDURE NAME: Venous U/S Left Arm - 04/21/2017 PROCEDURE: Left upper extremity venous duplex and color-flow imaging study using the [employer] vivid E 9 ultrasound system with a 9 L-D transducer. DATE OF STUDY: 04/21/2017. REFERRING PHYSICIAN: Dr. Deshpande from the emergency room. PATIENT PROFILE: A 71-year-old female. [employer] ASSISTANT: Michelle Rankin RVT. INDICATIONS: 1. Swelling of the limb, M 79.89. 2. Chest pain, unspecified, ICD-10 R 07.9. 3. The patient's D-dimer was 0.63. 4. She has developed left arm pain and edema. She also has chest pain and left neck pain. FINDINGS: The left internal jugular vein was compressible and had flow through it. The left subclavian and axillary veins had flow through them without evidence of thrombus. The left brachial vein was compressible throughout its length, as was the superficial veins of the left arm. The veins in the left antecubital fossa and left forearm were all compressible. INTERPRETATION: No evidence of acute deep or superficial venous thrombosis, left upper extremity. cc: Jaida Howell MD
--- NOTE | 2017-04-25 14:25 | CONSULTATION ---
DATE OF CONSULTATION: 04/25/2017 CONCLUSION: The patient has an area of cellulitis on her abdominal wall in the left lower quadrant. I think this is secondary to a spider bite. The patient tells me that one of her family members, when the patient first started having symptoms, noticed that there were bite callaway in the site and also the patient says that [place]. She also said that when she got it, she had been wearing a pair of pajamas that she at first did not shake out like she usually does. She just put them on. They had been lying somewhere. I think, overall, that the patient is getting better. RECOMMENDATIONS: The patient has decreased hearing. Therefore, I am going to stop vancomycin and replace it with p.o. Zyvox. Also, I am stopping Zosyn and starting the patient on cefepime because it will cover basically what the Zosyn does except for anaerobes, which probably are not important in this patient's illness, and it can be given every 12 hours, which will mean less IVs to hang. I talked to the patient about stopping the Prozac while she is on Zyvox to avoid an adverse reaction and she said she could do without the Prozac while I have her on Zyvox. DISCUSSION: Approximately 10 days ago, the patient developed pain in the left lower quadrant of her abdominal wall. As mentioned above, it was felt that a spider bit her, for the reasons mentioned above. She thinks that the area of involvement is not spreading any further, but it still does hurt her and it is tender. The patient's CBC shows a white count of 8620, hemoglobin 12.4, and platelet count 252,000. Creatinine is 1. GFR is 54. Liver function studies are normal. Blood cultures are negative. Urine is mixed culture. Chest x-ray shows no acute disease. This morning, Dr. Nance aspirated some fluid from the patient's abdominal wall. I cannot find where any studies on it are in the computer at this time. PAST MEDICAL HISTORY/REVIEW OF SYSTEMS: Eyes and Ears: She has decreased hearing, but her vision is okay. Neck: No stiffness. Respiratory: No cough or shortness of breath. Cardiac: Since she has had the cellulitis in her abdominal wall, the patient intermittently gets left-sided chest pain, which, overall, is decreasing in frequency. Gastrointestinal: The patient has chronic diarrhea. She is not having nausea or vomiting now. Endocrine: The patient does not have diabetes or thyroid disease. The patient does have hypothyroidism. Bones, joints, muscles: Patient tells me she has diffuse pain all over her body secondary to fibromyalgia. Neurologic: No seizures and no motor or sensory loss. Integument: No other rash, other than the area on the abdominal wall. The remainder of the patient's review of systems was completed and was negative. OBSTETRIC/GYNECOLOGIC HISTORY: She is a 3, para 3, AB 0. She has had a hysterectomy. PREVIOUS HOSPITALIZATIONS AND OPERATIONS: She has had 3 labor and deliveries, hysterectomy, hemorrhoidectomy, laminectomy, cholecystectomy, two breast biopsies, appendectomy, and bladder surgery. MEDICAL DISEASES: Positive for fibromyalgia and hypertension. INFECTIOUS DISEASE HISTORY: Positive for UTI. Negative for pneumonia. FAMILY HISTORY: Positive for diabetes mellitus, hypertension, myocardial infarction, stroke, and cancer. SOCIAL HISTORY: [place] She is . She has dogs for pets. She does not smoke cigarettes, drink alcoholic beverages, or abuse drugs. ALLERGIES: She is allergic to Demerol. HOME MEDICATIONS: The patient is on Valtrex, Synthroid, Prinivil, hydrocodone, Neurontin, Lasix, Prozac, Catapres, and Norvasc. PHYSICAL EXAMINATION: Vital Signs: Temperature is 98.4 degrees, pulse 66, respirations 20, blood pressure 100/78. The patient weighs 180 pounds. General: This is an obese, elderly female. She is in no acute distress. Head, eyes, ears, nose, and throat: She has decreased hearing. She can see near objects. Inspection of her mouth showed good oral hygiene. Neck: No meningismus. Thorax: No increased AP diameter of the chest. Lungs: Clear to auscultation. Cardiovascular: Heart rate is regular. I did not hear a murmur. Peripheral pulses are palpable. There is leg edema. Abdomen: Soft. It is tender in the left lower quadrant, where she has an erythematous area. There is no fluctuance and there is no induration. Neurologic: Patient is alert. She can move her extremities. There is no tremor. Her sensation is intact to touch. Her memory, as regarding her medical history, was intact. Thank you for the consult. cc: Gianni Aguilar MD
[2017-04-25] MEDS: MAXIPIME 2 GM/NS 2 GM/100 ML IVPB IV SCH (17:58)
[2017-04-25] MEDS: ZYVOX PO SCH (17:58)
--- NOTE | 2017-04-25 18:50 | PROGRESS NOTE ---
DATE: 04/25/2017 SUBJECTIVE: This patient states that she is feeling a little bit better. Her cellulitis with some area of induration looks a little bit better compared with admission. Surgery Department drained a small place of fluid collection. Probably this fluid has been sent for culture. She denies nausea, vomiting, diarrhea, no fever, no chills. OBJECTIVE: Vital Signs: Temperature 98.6 degrees, pulse 68, respiratory rate 19, blood pressure 147/71, oxygen saturation 98 on room air. HEENT: Head normocephalic. No trauma. PERRLA. Neck: Supple. No JVD. No masses. Central trachea. Chest: Clear to auscultation. No wheezing. No rales. Abdomen: Soft, nontender, nondistended. No hepatosplenomegaly. Obese. There is left lower quadrant redness with pain and an area of induration. Extremities: No edema. No clubbing. No cyanosis. Neurological: The patient is alert and oriented x3. No focal deficits. LABORATORY: WBC 8.6, hemoglobin 12.4, hematocrit 37.3, platelet 252,000. Sodium 142, potassium 4, chloride 103, bicarbonate 23, BUN 20, creatinine 1, glucose 114, calcium 8.8, albumin 3.8. ASSESSMENT AND PLAN: 1. Abdominal wall cellulitis with possible abscess, a little area with fluid has been drained by surgery, probably this fluid has been sent for culture, Infectious Disease Department evaluated this patient and they switched the medication to Zyvox and meropenem. Will continue to monitor. 2. Atypical chest pain. Will monitor. No chest pain today. 3. Possible fungal infection at the level of the inguinal area. Continue with clotrimazole topically. 4. Hypertension stable. 5. Possible urinary tract infection. Patient is on antibiotics. Continue to monitor. Blood culture and urine culture has been negative so far. cc: Sean Vanegas MD
[2017-04-25] MEDS: CATAPRES PO SCH (20:35)
[2017-04-25] MEDS: NEURONTIN PO SCH (20:36)
[2017-04-26] MEDS: ZYVOX PO SCH ×2 (06:20→17:00)
[2017-04-26] MEDS: SYNTHROID PO SCH (06:20)
[2017-04-26] MEDS: PRILOSEC PO SCH (06:20)
[2017-04-26] MEDS: MAXIPIME 2 GM/NS 2 GM/100 ML IVPB IV SCH ×2 (06:20→16:21)
--- NOTE | 2017-04-26 06:33 | PROGRESS NOTE ---
DATE: 04/26/2017 SUBJECTIVE: Patient doing okay. Erythema has improved. OBJECTIVE: Vital Signs: Patient is currently afebrile. Her vital signs are stable. General Examination: No acute distress. Cardiovascular: Regular rate and rhythm. Lungs: Grossly clear. Abdomen: An area of erythema to the left lower quadrant has improved. She had a mild amount of drainage at the previous puncture site. Overall, clinical picture has improved. Laboratory: Currently pending. ASSESSMENT AND PLAN: A 71-year-old, female with left lower quadrant abdominal wall abscess. 1. Left lower quadrant abdominal wall abscess. At this time, patient is on antibiotics and is improved. When we drained it yesterday, there was an insufficient amount of purulence to actually get a culture without being contaminated by the skin. Recommend continued antibiotics at this time. We will monitor her closely but I think she could potentially be discharged with antibiotics per infectious disease recommendation. 2. Multiple medical comorbidities currently being managed by the hospitalist service. cc: Vikas Nance MD
[2017-04-26 07:01] LABS: AGAP 12; BUN 20 mg/dL (8-22); CALCIUM 9.1 mg/dL (8.8-10.2); CHLORIDE 104 mmol/L (98-107); COSMO 286; POTASSIUM 4.3 mmol/L (3.5-5.1); SODIUM 142 mmol/L (136-145); TCO2 26 mmol/L (25-35)
[2017-04-26] MEDS: LASIX PO SCH (10:10)
[2017-04-26] MEDS: ASPIRIN PO SCH (10:10)
[2017-04-26] MEDS: PRINIVIL PO SCH (10:11)
[2017-04-26] MEDS: LOTRIMIN 1% CREAM TOP SCH (10:11)
[2017-04-26] MEDS: NORVASC PO SCH (10:11)
--- NOTE | 2017-04-26 10:27 | PROGRESS NOTE ---
DATE: 04/26/2017 PRESENT ILLNESS: The patient has cellulitis on her abdominal wall. It has been somewhat refractory to treatment. She seems to be getting a little bit better with the IV antibiotics. MEDICATIONS: The patient currently is receiving Zyvox and cefepime. PHYSICAL EXAMINATION: Vital Signs: Temperature is 97.9 degrees, pulse 67, respirations 20, blood pressure 127/58. General: This is an elderly, obese female who is in no acute distress. Lungs: Clear to auscultation. Cardiovascular: Regular heart rate. Abdomen: The left lower quadrant erythematous indurated area is slightly improved. There is no drainage at this time. The abdomen is soft and the left lower quadrant has an erythematous area that is slightly tender. Neurologic: The patient is alert. She can move her extremities. There was no tremor at rest. LAB AND X-RAY: There is no new x-ray today. Blood cultures are negative. Creatinine 0.9. GFR is greater than 60. The CBC shows a white count of 8620, hemoglobin 12.4, and platelet count 255,000. ASSESSMENT AND PLAN: The patient's comorbidities include she is elderly and she most likely had a spider bite on her abdomen which caused her having the problem with erythema and induration of the abdominal wall. Thank you for letting me see the patient. I plan to see her in my office in 2 weeks. Hopefully at that time, we can stop her antibiotics. I am going to put in a consult for [employer] to supply the cefepime and then I will be transmitting or having a computer make a prescription for doxycycline to take along with the cefepime. Both are going to be every 12 hours. I will see the patient back in my office in 2 weeks. If things are not going or are much improved, we can probably stop the antibiotics through her IV and remove the PICC. COMORBIDITIES: None other than living in an enviroment where there are many spiders. cc: Gianni Aguilar MD MTDD
[2017-04-26 10:59] LABS: INR 0.99; PROTIME 10.4 Seconds (9.2-11.7)
[2017-04-26] MEDS ORDERED: NS 250 ML ONE (11:17)
[2017-04-26 12:55] VITALS: BP 137/65
--- NOTE | 2017-04-27 11:56 | DISCHARGE SUMMARY ---
ADMISSION DATE: 04/22/2017 DISCHARGE DATE: 04/26/2017 DISCHARGE DIAGNOSES: 1. Abdominal wall cellulitis with small abscess. 2. Atypical chest pain. 3. Hypertension. 4. Possible urinary tract infection. CONSULTS: 1. Infectious Disease Department, Dr. Gianni Aguilar 2. Surgery Department, Dr. Vikas Garner [facility] COURSE: A 71-year-old female with a past medical history of hypertension, obesity, who presented to the emergency department with a chief complaint of left lower quadrant abdominal pain and some chest pain. As per the patient, she has been having this kind of discomfort for the past 2 days previous to the admission. She states that she saw her primary care physician, who thought that this was related possibly with zoster; however, she started presenting with redness, pain, and inflammation at the level of the left lower quadrant of the abdomen. This is why she decided to come to the emergency department. She was admitted under the diagnosis of cellulitis with possible abscess formation on 04/22/2017. During that time she was also complaining of some atypical chest pain. All the cardiac enzymes and EKGs did not show any acute abnormality. She was admitted and placed on antibiotics. Surgery department was consulted and they drained a small amount of fluid that she had in the affected area. Infectious Disease Department, Dr. Gianni Aguilar, adjusted her antibiotics. This patient was improving on a daily basis. This is why today 04/26/2017 we decided to discharge this patient with strict followup by her primary care doctor and follow with Dr. Gianni Aguilar in 2 weeks. She will be discharged with IV antibiotics and p.o. antibiotics. IV antibiotics will be provided by the [facility]. This patient had a PICC line placed. At the moment of discharge, this patient was in stable medical condition. PHYSICAL EXAMINATION: Temperature 98.3 degrees, pulse 66, respiratory rate 20, blood pressure 137/65, oxygen saturation 99 on room air. HEENT: Head normocephalic. No trauma. PERRLA. Neck: Supple. No JVD. No masses. Central trachea. Chest: Clear to auscultation. No wheezing. No rales. Abdomen: Soft. There is some redness, inflammation, and pain at the level of the left lower quadrant, that compared with the admission is much better and less painful. Extremities: No edema, no clubbing, and no cyanosis. Neurological Examination: The patient is alert and oriented x3. No focal neurological deficits. LABORATORY: Sodium 142, potassium 4.3, chloride 104, bicarbonate 26. BUN 20, creatinine 0.9. Glucose 108, calcium 9.1. FOLLOWUP: Followup by her primary care doctor in 1 week and followup with Dr. Aguilar, Infectious Disease doctor in 2 weeks. This patient will be discharged with a PICC line and IV antibiotics, as well as p.o. antibiotics. DISCHARGE MEDICATIONS: 1. Doxycycline 100 mg p.o. q.12 hours. 2. Aspirin 325 mg p.o. daily. 3. Acetaminophen 650 mg p.o. q.6 hours p.r.n. 4. Levothyroxine 75 mcg p.o. daily. 5. Furosemide 40 mg p.o. daily. 6. Prozac 40 mg p.o. daily. 7. Lisinopril 20 mg p.o. twice a day. 8. Amlodipine 5 mg p.o. daily. 9. Gabapentin 300 mg p.o. at bedtime. 10. Clonidine 0.2 mg p.o. at bedtime. 11. [place] 7.5, one tablet p.o. every 6 hours p.r.n. pain. 12. Cefepime 2 grams q.12 hours for 2 weeks. TIME DISCHARGING THIS PATIENT: Was 35 minutes. cc: Sean Vanegas MD MTDD
== END 2017-04-26 17:11 | disposition home health service (06) ==
LOC: ED 19:39 → 3N 04-22 01:10 → SUATTDRO 04-22 01:10 → 3N 04-22 02:06
PROVIDERS: ATTEND Internal Medicine